=== PATIENT | female | born 1995 ===

== ENCOUNTER 2018-11-27 09:09 | Emergency (ER) | payer OTHER ==
[2018-11-27 09:25] VITALS: BMI 23.8
[2018-11-27 09:29] VITALS: RESP 18; TEMP 98.9
[2018-11-27] MEDS ORDERED: Sodium Chloride 0.9% 1,000 ML IV ONE (11:07)
[2018-11-27] MEDS ORDERED: Sodium Chloride 0.9% 1,000 ML ONE (11:32)
[2018-11-27 11:42] LABS: BASO % 0.5 % (0.0-2.0); EOS # 0.2 K/uL (0.0-0.7); EOS % 2.9 % (0.0-4.0); LYMPH # 1.6 K/uL (1.0-4.3); LYMPH % 27.2 % (20.0-40.0); MEAN CORPUSCULAR HGB CONC 33.7 g/dL (33.0-37.0); MONO # 0.5 K/uL (0.0-0.8); MONO % 8.1 % (0.0-10.0); NEUT # 3.6 K/uL (1.8-7.0); NEUT % 61.3 % (50.0-75.0); NRBC % 0.4 % (0.0-2.0); RBC 4.3 Mil/uL (3.80-5.20); RED CELL DISTRIBUTION WIDTH 14.6 % (11.5-14.5)
[2018-11-27 11:48] LABS: SQUAMOUS EPITHIAL 26 /hpf (0-5); URINE BACTERIA RARE (<OCC); URINE BILIRUBIN NEGATIVE (NEGATIVE); URINE BLOOD 1+ (NEGATIVE); URINE CLARITY Hazy (Clear); URINE COLOR Yellow (YELLOW); URINE GLUCOSE (UA) NORMAL (Normal); URINE LEUKOCYTE ESTERASE 1+ Leu/uL (Negative); URINE PROTEIN NEGATIVE (NEGATIVE)
[2018-11-27 11:52] LABS: ALB/GLOB RATIO 1.3 (1.0-2.1); ALBUMIN 4.3 g/dL (3.5-5.0); ALT/SGPT 14 U/L (9-52); AST/SGOT 23 U/L (14-36); BLOOD UREA NITROGEN 13 mg/dL (7-17); CALCIUM 9.3 mg/dl (8.6-10.4); GFR NON-AFRICAN AMERICAN > 60; LIPASE 48 U/L (23-300)
[2018-11-27 11:56] LABS: HEMOGLOBIN 12.4 g/dL (11.0-16.0); MEAN CELL VOLUME 85.8 fL (81.0-99.0); WHITE BLOOD COUNT 5.9 K/uL (4.8-10.8)
--- NOTE | 2018-11-27 13:02 | C.PDOC ---
History Of Present Illness 23 y/o female presents to the ER complaining of vomiting and abdominal pain which has been present for the past 2 days. Patient states that she has diarrhea for the past 1 week. Her LMP was on 11/16/18. She notes that she also has fever, cough, and headache. She reports that she her TMax was 100.2 F. She states that she took Ibuprofen.Denies having CP,SOB, dysuria, and hematuria. Time Seen by Provider: 11/27/18 10:34 Chief Complaint (Nursing): GI Problem History Per: Patient History/Exam Limitations: no limitations Onset/Duration Of Symptoms: Days Current Symptoms Are (Timing): Still Present Severity: Moderate Past Medical History Reviewed: Historical Data, Nursing Documentation, Vital Signs Vital Signs: Last Vital Signs Temp 98.9 F 11/27/18 09:25 Pulse 72 11/27/18 09:25 Resp 18 11/27/18 09:25 BP 91/62 L 11/27/18 09:25 Pulse Ox 96 11/27/18 09:25 Primary Care Provider: Elaina Valera - Medical History PMH: Anemia Other Surgeries: Hx of surgeries Family History: States: No Known Family Hx - Social History Hx Tobacco Use: No Hx Alcohol Use: No Hx Substance Use: No - Immunization History Hx Tetanus Toxoid Vaccination: Yes Hx Influenza Vaccination: No Hx Pneumococcal Vaccination: No Review Of Systems Except As Marked, All Systems Reviewed And Found Negative. Constitutional: Positive for: Fever. Negative for: Chills Cardiovascular: Negative for: Chest Pain Respiratory: Negative for: Shortness of Breath Gastrointestinal: Positive for: Vomiting, Abdominal Pain, Diarrhea Genitourinary: Negative for: Dysuria, Hematuria Neurological: Positive for: Headache Physical Exam - Physical Exam Appears: Non-toxic, No Acute Distress Skin: Normal Color, Warm, Dry Head: Atraumatic, Normacephalic Eye(s): bilateral: Normal Inspection Nose: Normal Oral Mucosa: Moist Neck: Supple Chest: Symmetrical Cardiovascular: Rhythm Regular Respiratory: Normal Breath Sounds, No Rales, No Rhonchi, No Wheezing Gastrointestinal/Abdominal: Soft, Tenderness (lower abdominal tenderness), No Guarding, No Rebound Neurological/Psych: Oriented x3, Normal Speech ED Course And Treatment - Laboratory Results Result Diagrams: 11/27/18 11:28 11/27/18 11:28 Lab Results: Total Bilirubin 0.3 mg/dL (0.2-1.3) 11/27/18 11:28 AST 23 U/L (14-36) 11/27/18 11:28 ALT 14 U/L (9-52) 11/27/18 11:28 Alkaline Phosphatase 46 U/L (38-126) 11/27/18 11:28 Total Protein 7.6 g/dL (6.3-8.3) 11/27/18 11:28 Albumin 4.3 g/dL (3.5-5.0) 11/27/18 11:28 Globulin 3.3 gm/dL (2.2-3.9) 11/27/18 11:28 Albumin/Globulin Ratio 1.3 (1.0-2.1) 11/27/18 11:28 Lipase 48 U/L (23-300) 11/27/18 11:28 Urine Color Yellow (YELLOW) 11/27/18 11:28 Urine Clarity Hazy (Clear) 11/27/18 11:28 Urine pH 6.0 (5.0-8.0) 11/27/18 11:28 Ur Specific [place] 1.025 (1.003-1.030) 11/27/18 11:28 Urine Protein Negative mg/dL (NEGATIVE) 11/27/18 11:28 Urine Glucose (UA) Normal mg/dL (Normal) 11/27/18 11:28 Urine Ketones Negative mg/dL (NEGATIVE) 11/27/18 11:28 Urine Blood 1+ (NEGATIVE) H 11/27/18 11:28 Urine Nitrate Negative (NEGATIVE) 11/27/18 11:28 Urine Bilirubin Negative (NEGATIVE) 11/27/18 11:28 Urine Urobilinogen 2.0 mg/dL (0.2-1.0) H 11/27/18 11:28 Ur Leukocyte Esterase 1+ Reggie/uL (Negative) H 11/27/18 11:28 Urine WBC (Auto) 5 /hpf (0-5) 11/27/18 11:28 Urine RBC (Auto) 11 /hpf (0-3) H 11/27/18 11:28 Ur Squamous Epith Cells 26 /hpf (0-5) H 11/27/18 11:28 Urine Bacteria Rare (<OCC) 11/27/18 11:28 O2 Sat by Pulse Oximetry: 96 (RA) Pulse Ox Interpretation: Normal Medical Decision Making Medical Decision Making: Plan: --Labs --UA --Urine Culture --IV Fluids Updates: On re-evaluation, patient feels better. Patient has been discharged and instructed to follow up with . Disposition Counseled Patient/Family Regarding: Studies Performed, Diagnosis, Need For Followup - Disposition Referrals: Elaina Valera MD [Staff Provider] - Disposition: HOME/ ROUTINE Disposition Time: 12:59 Condition: STABLE Instructions: Acute Abdomen (Belly Pain), Nausea and Vomiting, Adult (DC) Forms: General Discharge Instructions, [facility] ([place]), Work Excuse - POA Present On Arrival: None - Clinical Impression Clinical Impression: Vomiting, Nausea, Abdominal pain - Scribe Statement The provider has reviewed the documentation as recorded by the Tayloribbeltran Muñiz Provider Attestation: All medical record entries made by the Scribe were at my direction and personally dictated by me. I have reviewed the chart and agree that the record a ccurately reflects my personal performance of the history, physical exam, medical decision making, and the department course for this patient. I have also personally directed, reviewed, and agree with the discharge instructions and disposition.
[2018-11-27 13:45] VITALS: BP 101/63; PULSE 75
[2018-11-27 15:06] VITALS: O2SAT 96
== END 2018-11-27 13:31 | disposition home or self-care (01) ==
LOC: C.ER 09:09
DX: R11.2 Nausea with vomiting, unspecified (principal); R10.30 Lower abdominal pain, unspecified